=== PATIENT | male | born 1965 | race Caucasian/White ===

== ENCOUNTER 2020-09-17 11:00 | Emergency (ER) | payer MEDICAID, SELFPAY ==
[~2020-09-17] VITALS: Ht 172.7 cm; Wt 108.9 kg
[~2020-09-17 11:00] MED LIST: AMO500 PO; BAYER ASPIRIN R81 MG PO; BIA500 PO; PRAVACHOL20 MG PO; PRI20 PO
[2020-09-17 11:03] VITALS: Ht 172.7 cm; Wt 108.9 kg
[2020-09-17 12:53] VITALS: BP 107/70
== END 2020-09-17 12:53 | disposition home or self-care (01) ==
LOC: ED 11:00
DX: U07.1 COVID-19 (principal)
CPT/HCPCS: 87804; U0003